=== PATIENT | male | born 1985 | race Caucasian/White ===

== ENCOUNTER → 2021-03-11 | Outpatient (CLI) | payer OTHER ==
[~2021-03-11] MED LIST: CEPHALEXIN500 MG PO; HYDROCODON-ACE1 EAC4 PO; NORCO 5-325 TA1 EACH PO
== END ==
LOC: KOH-I 02-11 08:30
DX: R10.84 Generalized abdominal pain (principal)
CPT/HCPCS: 76705

== ENCOUNTER 2021-03-26 14:16 | Emergency (ER) | payer OTHER ==
[~2021-03-26 14:16] MED LIST changes: -CEPHALEXIN500 MG PO; -HYDROCODON-ACE1 EAC4 PO
[2021-03-26] MEDS ORDERED: CEPHALEXIN500 MG PO (16:44)
[2021-03-26] MEDS ORDERED: HYDROCODON-ACE1 EAC4 PO (16:46)
== END 2021-03-26 17:19 | disposition home or self-care (01) ==
LOC: ER1 14:16
DX: S62.635B Displaced fracture of distal phalanx of left ring finger, initial encounter for open fracture (principal); W23.0XXA Caught, crushed, jammed, or pinched between moving objects, initial encounter; F17.200 Nicotine dependence, unspecified, uncomplicated; Z23 Encounter for immunization
CPT/HCPCS: 12001; 73130; 90715; 96372; 99283; J0690